=== PATIENT | male | born 1990 | race Caucasian/White ===

== ENCOUNTER 2022-10-14 22:35 | Emergency (ER) | payer OTHER ==
[~2022-10-14] VITALS: Ht 167.6 cm; Wt 79.4 kg
--- NOTE | 2022-10-15 00:15 | NUR ---
Dr. Salomon evaluating patient at bedside. MSE in progress.
[2022-10-15] MEDS ORDERED: TDAP DIPH,PERTUSS,TET VAC/PF 0.5 ML DISP.SYRIN IM ONE ×2 (02:00→02:14)
[2022-10-15] MEDS ORDERED: SULF1TAB48 PO (02:06)
--- NOTE | 2022-10-15 02:30 | NUR ---
Patient discharged to home in stable condition. Written and verbal after care instructions given. Patient verbalizes understanding of instructions. Stressed follow up or return to ER for worsening s/s.
[2022-10-15 02:31] VITALS: BP 115/65
== END 2022-10-15 02:31 | disposition home or self-care (01) ==
LOC: ER 22:35
DX: L03.115 Cellulitis of right lower limb (principal)
CPT/HCPCS: 73590; 90715; A4663